=== PATIENT | male | born 1960 | race Caucasian/White ===

== ENCOUNTER 2018-05-04 14:23 | Observation (INO) | payer OTHER ==
[~2018-05-04] VITALS: Ht 175.3 cm; Wt 112.0 kg
[~2018-05-04 14:23] MED LIST: HYDR25TA6
[2018-05-04] MEDS ORDERED: PLEASE ENTER HEIGHT AND WEIGHT MC SCH (14:30)
[2018-05-04] MEDS ORDERED: SODIUM CHLORIDE 0.9% 1,000ML IVBOLUS ONE (14:30)
[2018-05-04] MEDS ORDERED: HYDR1POW19 PO (14:40)
[2018-05-04 14:43] LABS: BASOPHILS # (AUTO) 0.05 x10^3/uL (0-0.1); BASOPHILS % (AUTO) 0 % (0-1); EOSINOPHILS # (AUTO) 0.02 x10^3/uL (0-0.4); EOSINOPHILS % (AUTO) 0 % (1-7); LYMPHOCYTES # (AUTO) 1.57 x10^3/uL (1-3.4); LYMPHOCYTES % (AUTO) 10 % (22-44); MD NO; MEAN CORPUSCULAR HEMOGLOBIN 29.8 pg (27.5-34.5); MEAN CORPUSCULAR HGB CONC 33.3 g/dL (33.2-36.2); MEAN CORPUSCULAR VOLUME 89.5 fL (81-97); MONOCYTES % (AUTO) 3 % (2-9); NEUTROPHILS # (AUTO) 13.69 x10^3/uL (1.8-6.8); NEUTROPHILS % (AUTO) 87 % (42-75); PLATELET COUNT 318 x10^3/uL (130-400); RED BLOOD COUNT 4.84 x10^6/uL (4.38-5.82); RED CELL DISTRIBUTION WIDTH 13.1 % (9.4-14.8)
[2018-05-04 14:56] LABS: ALBUMIN 3.4 g/dL (3.4-5.0); ANION GAP 7 mmol/L (5-15); CALCIUM 8.5 mg/dL (8.5-10.1); CHLORIDE 108 mmol/L (98-107); CREATININE 1.68 mg/dL (0.7-1.3)
[2018-05-04 14:59] LABS: TROPONIN I < 0.015 ng/mL (0.000-0.045)
[2018-05-04] MEDS ORDERED: ENOXAPARIN 40 MG/0.4 ML SQ SCH (16:00)
[2018-05-04] MEDS ORDERED: ACETAMINOPHEN 325 MG TABLET PO PRN (16:00)
[2018-05-04] MEDS ORDERED: SODIUM CHLORIDE FLUSH 10ML SYR IVF ONE (16:00)
[2018-05-04] MEDS ORDERED: OMNIPAQUE 350 MG/ML, 100ML BOTTLE ONE (16:41)
[2018-05-04 17:08] LABS: HEMOGLOBIN A1C 5.7 % (4.2-6.3)
[2018-05-04 17:42] VITALS: BP 125/77
[2018-05-04] MEDS: NS + 20MEQ KCL 1,000 ML IV SCH (18:08)
[2018-05-04 21:57] VITALS: BP 114/74
[2018-05-04 23:00] LABS: TROPONIN I < 0.015 ng/mL (0.000-0.045)
[2018-05-05] VITALS (7 sets, daily range): BP systolic 104–144; BP diastolic 68–92
[2018-05-05] MEDS: NS + 20MEQ KCL 1,000 ML IV SCH ×2 (02:18→14:21)
[2018-05-05 06:01] LABS: BASOPHILS # (AUTO) 0.05 x10^3/uL (0-0.1); BASOPHILS % (AUTO) 1 % (0-1); EOSINOPHILS # (AUTO) 0.18 x10^3/uL (0-0.4); EOSINOPHILS % (AUTO) 2 % (1-7); LYMPHOCYTES # (AUTO) 2.17 x10^3/uL (1-3.4); LYMPHOCYTES % (AUTO) 24 % (22-44); MD NO; MEAN CORPUSCULAR HEMOGLOBIN 30.2 pg (27.5-34.5); MEAN CORPUSCULAR HGB CONC 33.3 g/dL (33.2-36.2); MEAN CORPUSCULAR VOLUME 90.6 fL (81-97); MEAN PLATELET VOLUME 8.4 fL (7.4-10.4); MONOCYTES # (AUTO) 0.72 x10^3/uL (0.2-0.8); MONOCYTES % (AUTO) 8 % (2-9); NEUTROPHILS # (AUTO) 5.92 x10^3/uL (1.8-6.8); NEUTROPHILS % (AUTO) 66 % (42-75); PLATELET COUNT 243 x10^3/uL (130-400); RED BLOOD COUNT 4.33 x10^6/uL (4.38-5.82); RED CELL DISTRIBUTION WIDTH 13.3 % (9.4-14.8)
[2018-05-05 06:06] LABS: ANION GAP 6 mmol/L (5-15); CALCIUM 8.4 mg/dL (8.5-10.1); CHLORIDE 111 mmol/L (98-107); CHOLESTEROL, TOTAL 142 mg/dL (140-239); TRIGLYCERIDES 75 mg/dL (50-200); VLDL CHOLESTEROL 15 mg/dL (0-25)
[2018-05-05 06:08] LABS: CHOL/HDL RATIO 3.7; HDL CHOL % 27 % (26-37); HDL CHOLESTEROL (DIRECT) 38 mg/dL (40-60); LDL CHOLESTEROL,CALCULATED 89 mg/dL (54-169); LDL/HDL RATIO 2.3 (0.5-3.0)
[2018-05-05] MEDS ORDERED: HYDROCHLOROTHIAZIDE 25 MG TABLET PO SCH (09:00)
[2018-05-05] MEDS ORDERED: QUINAPRIL 40 MG HOMEMEDPO SCH (09:00)
[2018-05-05] MEDS ORDERED: QUIN40TA15 PO (09:24)
[2018-05-05] MEDS ORDERED: HYDR12.53 PO (14:32)
[2018-05-05] MEDS ORDERED: MECL-85 PO (14:32)
== END 2018-05-05 16:15 | disposition home or self-care (01) ==
LOC: ED 14:54 → EDIP 15:59 → 5SO 17:36 → DCLOUNGE 05-05 16:05
PROVIDERS: ADMIT Internal Medicine; ATTEND Internal Medicine
DX: R07.2 Precordial pain (principal); R55 Syncope and collapse; R09.02 Hypoxemia; I11.9 Hypertensive heart disease without heart failure; F12.90 Cannabis use, unspecified, uncomplicated; Z86.73 Personal history of transient ischemic attack (TIA), and cerebral infarction without residual deficits; Z87.891 Personal history of nicotine dependence; Z23 Encounter for immunization; E66.9 Obesity, unspecified; N17.0 Acute kidney failure with tubular necrosis; Z82.49 Family history of ischemic heart disease and other diseases of the circulatory system
CPT/HCPCS: 36415; 71045; 71275; 78452; 80048; 80061; 82040; 83036; 83735; 84100; 84443; 84484; 85025; 85379; 90471; 90656; 93005; 93017; 96360; 96361; 96372; 99285; A9502; C9898; G0378; J1650; J3480; J7030; Q9967; 96365; 96366